=== PATIENT | male | born 1940 | race Caucasian/White ===

== ENCOUNTER 2017-01-25 08:44 | Observation (INO) | payer MEDICARE, BC ==
[~2017-01-25] VITALS: Ht 182.9 cm; Wt 72.8 kg
--- NOTE | ~2017-01-25 | HEMODYNAMI ---
PATIENT:JOHN CHAMBERS MEDICAL RECORD: [id number] : 42 [facility] [id number] ADMISSION DATE: 01/25/17 Generatedon:01/26/201712:36 Patient name: JOHN HCAMBERS Patient #: [id number] SSN: [id number] : 1940 Date of study: 01/26/2017 Page: Of Hemodynamic Procedure Report Patient Data Patient Demographics Procedure consent was obtained First Name: Gender: Male Last Name: REYES : 1940 [facility] Initial: KAREN Age: 76 year(s) Patient #: [id number] Race: SSN: [id number] Additional ID: [id number] Contact details Address: [address] [place] [address] [place] State: [place] City: [place] Zip code: [address] Admission Admission Data Admission Date: 01/25/2017 Admission Time: 10:54 Arrival Date: 01/25/2017 Arrival Time: 10:54 Admit Source: Other Insurance Payor: Medicare Room #: D.2123 Weight (lbs.): 160.94 Weight (kg.): 73 Lab Results Lab Result Date: 01/26/2017 Lab Result Time: 0:00 Biochemistry Name Units Result Min Max BUN mg/dl 17 --(---*)-- 7 18 Creatinine mg/dl 1 --(--*-)-- 0.6 1.3 CBC Name Units Result Min Max Hemoglobin g/dl 16.6 --(---*)-- 13.5 17.5 Procedure Procedure Types Cath Procedure Diagnostic Procedure LHC LHC w/Coronaries w/Grafts Miscellaneous Procedures Moderate Sedation up to 15 minutes Procedure Description Procedure Date Procedure Date: 01/26/2017 Procedure Start Time: 12:23 Procedure End Time: 12:35 Procedure Staff Name Function Petey Dunlap MD Performing Physician Larua Pyle RT Scrub Bart Espinoza RN Nurse Annabella Kai RT Monitor Indication Angina Procedure Data Cath Procedure Fluoroscopy Diagnostic fluoroscopy Total fluoroscopy Time: 2.2 time: 2.2 min min Diagnostic fluoroscopy Total fluoroscopy dose: 347 dose: 347 mGy mGy Contrast Material Contrast Material Type Amount (ml) Isovue 300 68 Entry Location Entry Primary Successful Side Size Upsize Upsize Entry Closure Succes sful Closure Location (Fr) 1 (Fr) 2 (Fr) Remarks Device Remarks Femoral Right 5 Fr Vascade artery Closure System Estimated blood loss: 10 ml Diagnostic catheters Device Type Used For End Catheter Placement Cordis 5Fr Pigtail Ventriculography Catheter (MP) Cordis 5Fr JL 4.0 Procedure Catheter (MP) Cordis 5Fr 3DRC Catheter Procedure (MP) Diagnostic Infinity 5Fr Procedure AR 2 MOD catheter Procedure Complications No complications Procedure Medications Medication Administration Route Dosage Oxygen NC 2 l/min Lidocaine 2% added to field 20 Heparin Flush Bag added to field 2 bags (1000units/500ml NS) 0.9% NaCl I.V. 100 ml/hr Versed I.V. 1 mg Fentanyl I.V. 50 mcg Versed I.V. 1 mg Fentanyl I.V. 50 mcg Hemodynamics Rest HGB: 16.6 (g/dl) Heart Rate: 81 (bpm) Snapshots Pre Cath Intra NCS Post Cath Vital Signs Time Heart Resp SPO2 NIBP (mmHg) Rhythm Pain Status Sedation Rate (ipm) (%) Level (bpm) 11:58:53 68 17 98 149/79(110) NSR 4 (11) , 10(A) Distressing 12:03:15 61 22 98 121/68(84) NSR 4 (11) , 10(A) Distressing 12:07:17 77 17 97 120/92(102) NSR 4 (11) , 10(A) Distressing 12:12:20 64 14 97 138/68(118) NSR 4 (11) , 10(A) Distressing 12:16:36 61 16 98 123/66(86) NSR 4 (11) , 10(A) Distressing 12:20:50 55 16 98 109/60(86) NSR 0 (11) , No 9(A) pain 12:24:56 66 16 98 115/67(89) NSR 0 (11) , No 9(A) pain 12:29:04 69 15 97 109/64(86) NSR 0 (11) , No 9(A) pain 12:33:06 73 17 97 117/76(87) NSR 0 (11) , No 10(A) pain Medications Time Medication Route Dose Verified Delivered Reason Notes Effe ctiveness by by 12:00:10 Oxygen NC 2 Petey Buffie used for l/min Germán Espinoza RN procedure 12:01:16 Lidocaine 2% added 20ml Petey Petey for local to vial Germán Dunlap MD anesthetic field 12:01:23 Heparin Flush added 2 Petey Petey used for Bag to bags Germán Dunlap MD procedure (1000units/500ml field NS) 12:01:31 0.9% NaCl I.V. 100 Peteyolivier Mcgeeie Per ml/hr Germán Espinoza RN physician 12:18:45 Versed I.V. 1 mg Petey Mcgeeie for Germán Espinoza RN sedation 12:18:51 Fentanyl I.V. 50 Petey Buffie for mcg Germán Espinoza RN sedation 12:24:10 Versed I.V. 1 mg Petey Mcgeeie for Germán Espinoza RN sedation 12:24:15 Fentanyl I.V. 50 Petey Mcgeeie for mcg Germán Espinoza RN sedation Procedure Log Time Note 11:30:38 Bart Espinoza RN sent for patient. Start room use. 11:34:38 Informed consent obtained and on chart 11:34:52 Admit Source: Other 11:34:57 Arrival Date: 01/25/2017 10:54:00 AM 11:35:06 Insurance Payor : Medicare 11:37:18 Lab Result : Hemoglobin 16.6 g/dl 11:37:18 Lab Result : BUN 17 mg/dl 11:37:18 Lab Result : Creatinine 1 mg/dl 11:37:47 Diagnostic Cath Status : Elective 11:39:21 Indication : Angina 11:39:44 Time tracking: Regular hours 11:39:48 Plan of Care:Hemodynamics will remain stable., Cardiac rhythm will remain stable., Comfort level will be maintained., Respiratory function will remain adequate., Patient/ family verbilizes understanding of procedure., Procedure tolerated without complication., Recovers from procedure without complications.. 11:57:45 Patient received from Med II to [facility] 2 Alert and oriented. Tansferred to table in Supine position. 11:57:46 Warm blankets applied, and chary hugger turned on for patient comfort. 11:57:47 Correct patient and procedure confirmed by team. 11:57:47 ECG and BP/O2 sat monitors applied to patient. 11:57:49 Vital chart was started 11:57:52 Baseline sample Acquired. 11:57:57 Rhythm: sinus rhythm 11:57:59 Full Disclosure recording started 11:58:05 H&P Date Dictated: 01/26/2017 New H&P dictated by physician.. 11:58:07 Pre-procedure instructions explained to patient. 11:58:07 Pre-op teaching completed and patient verbalized understanding. 11:58:08 Family in waiting room. 11:58:10 Patient NPO since Midnight. 11:58:14 Is the patient allergic to Iodine/contrast media? No. 11:58:15 Was the patient premedicated? No 11:58:16 Is patient on blood thinner?Yes 11:58:19 ACC The patient was administered the following blood thiners within the last 24 hours: ACCPlavix 11:58:21 Patient diabetic? No. 11:58:24 Previous problem with sedation/anesthesia? No ? 11:58:26 Snore? Yes 11:58:27 Sleep apnea? No 11:58:28 Deviated septum? No 11:58:29 Opens mouth fully? Yes 11:58:30 Sticks out tongue? Yes 11:58:32 Airway obstruction? No ? 11:58:34 Dentures? No ? 11:58:38 Pre procedure: right dorsailis pedis pulse 1+ Palpable, but thready & weak; easily obliterated 11:58:43 Patient pain scale 4/10 ?. 11:58:51 IV patent on arrival in left forearm with 0.9% NaCl at O. 11:58:54 Lab results completed and on chart. 11:58:57 Right groin area was prepped with chlora-prep and draped in sterile fashion 11:58:58 Alarms reviewed by R. N. 11:58:58 Sharps counted by scrub and verified by R.N. 11:59:07 Procedure type changed to Cath procedure, Diagnostic procedure, LHC, LHC w/Coronaries w/Grafts, Miscellaneous Procedures, Moderate Sedation up to 15 minutes 12:00:03 Physician paged 12:00:10 Oxygen 2 l/min NC was administered by Bart Espinoza RN; used for procedure; 12:00:31 Use device set Femoral Dx 12:00:49 Acist Syringe opened to sterile field. 12:00:51 Bag Decanter opened to sterile field. 12:00:51 Medline Cath Pack opened to sterile field. 12:00:53 Terumo 5Fr Brighton Sheath opened to sterile field. 12:00:54 St Mesfin 260cm J .035 wire opened to sterile field. 12:01:16 Lidocaine 2% 20ml vial added to field was administered by Petey Dunlap MD; for local anesthetic; 12:01:21 Acist Hand Control opened to sterile field. 12:01:23 Heparin Flush Bag (1000units/500ml NS) 2 bags added to field was administered by Petey Dunlap MD; used for procedure; 12:01:27 Acist Manifold opened to sterile field. 12:01:29 Diagnostic Infinity 5Fr Multipack catheter opened to sterile field. 12:01:31 0.9% NaCl 100 ml/hr I.V. was administered by Bart Espinoza RN; Per physician; 12:01:31 Tegaderm 4 x 4 opened to sterile field. 12:04:14 Patient Weight : 73 kg 12:09:40 Zero performed for pressure channel P1 12:10:07 Physician arrived 12:18:01 --------ALL STOP TIME OUT------ 12:18:05 Final Timeout: patient, procedure, and site verified with staff and physician. All members of the team are in agreement. 12:18:08 Right groin site verified by team. 12:18:11 Physical assessment completed. ASA score P 2 - A patient with mild systemic disease as per Petey Dunlap MD. 12:18:17 Sedation plan: IV Moderate Sedation Versed, Fentanyl 12:18:45 Versed 1 mg I.V. was administered by Bart Espinoza RN; for sedation; 12::51 Fentanyl 50 mcg I.V. was administered by Bart Espinoza RN; for sedation; 12:23:21 Procedure started. 12:23:30 Local anesthetic to right femoral artery with Lidocaine 2% by Petey Dunlap MD.INITIAL ACCESS ONLY 12:24:10 Versed 1 mg I.V. was administered by Buffie Espinoza RN; for sedation; 12:24:15 Fentanyl 50 mcg I.V. was administered by Bart Espinoza RN; for sedation; 12:24:16 A 5 Fr sheath was inserted into the Right Femoral artery 12:25:10 A Cordis 5Fr Pigtail Catheter (MP) was advanced over the wire and used for Ventriculography. 12:25:21 LV angiography performed. 12:25:34 EF : 35 % 12:25:36 Catheter removed. 12:26:02 A Cordis 5Fr JL 4.0 Catheter (MP) was advanced over the wire and used for Procedure. 12:27:09 LCA angiography performed. 12:27:11 Catheter removed. 12::23 A Cordis 5Fr 3DRC Catheter (MP) was advanced over the wire and used for Procedure. 12:27:39 DASILVA to LAD angiography performed. 12:28:14 RCA angiography performed. 12:28:30 DASILVA angiography performed. 12:30:10 Catheter removed. 12:30:42 A Diagnostic Infinity 5Fr AR 2 MOD catheter was advanced over the wire and used for Procedure. 12:31:09 SVG to OM angiography performed. 12:31:19 Catheter removed. 12:32:48 Vascade 5Fr Closure Device opened to sterile field. 12:33:03 Sheath removed intact; hemostasis achieved with Vascade Closure System to the Right Femoral artery. 12:33:06 Procedure ended.(Physican Out) 12:33:15 Fluoroscopy time 02.20 minutes. 12:33:21 Fluoroscopy dose: 347 mGy 12:33:21 Flurop Dose total: 347 12:33:40 Contrast amount:Isovue 300 68ml. 12:33:42 Sharps counted by scrub and verified by R.N. 12:33:46 Insertion/operative site no bleeding no hematoma. 12:33:48 Post Procedure Pulses reassessed and unchanged 12:33:53 Post-procedure physical assessment completed. ASA score P 2 - A patient with mild systemic disease as per Petey Dunlap MD. 12:33:58 Post procedure rhythm: unchanged. 12:34:01 Estimated blood loss: 10 ml 12:34:05 Post procedure instruction explained to patient.Patient verbalizes understanding. 12:34:19 Procedure and supply charges have been captured, reviewed, submitted and are correct. 12:35:00 Procedure Complication : No complications 12:35:03 Vital chart was stopped 12:35:04 See physician's report for complete and final results. 12:35:07 Report given to [facility]. 12:35:11 Patient transfered to [facility] with Bed. 12:35:28 Procedure ended. 12:35:28 Full Disclosure recording stopped 12:35:36 End room use (Document Last) Device Usage Item Name Manufacture Quantity Catalog Number Hospital Part Current Minima l Lot# / Charge Number Stock Stock Serial# Code Acist Acist 1 64808 [id number] 796636 236112 20 Syringe Medical Systems Inc Bag Microtek 1 2002S 112005 48810 790503 5 Decanter Medical Inc. Medline Cardinal 1 [id number] 413906 94626 002931 5 Cath Pack Health Terumo 5Fr Terumo 1 [id number] 825938 808033 293122 [address] Mesfin 1 189847 412549 321705 071650 30 260cm J .035 wire Acist Hand Acist 1 50488 144167 155635 127484 5 Control Medical Systems Inc Acist Acist 1 76295 680047 861219 631248 5 Manifold Medical Systems Inc Diagnostic Cardinal 1 [id number] 187987 14873 902122 30 Infinity Health 5Fr Multipack catheter Tegaderm 4 3M 1 1626W 715171 414682 288897 5 x 4 Cordis 5Fr Cardinal 1 [id number] 5 Pigtail Health Catheter (MP) Cordis 5Fr Cardinal 1 [id number] 5 JL 4.0 Health Catheter (MP) Cordis 5Fr Cardinal 1 795783 5 3DRC Health Catheter (MP) Diagnostic Cardinal 1 [id number] 818488 787360 012592 20 Infinity Health 5Fr AR 2 MOD catheter Vascade Cardiva 1 [id number] 001062 40472 484894 10 5Fr Medical, Closure Inc. Device Signature Audit [place] Stage Time Signature Unsigned Intra-Procedure 01/26/2017 Annabella Quinn 12:35:58 PM RT(R) Signatures Monitor : Annabella Quinn Signature : RT Date : Time : [facility] [address] [place] [address]
[~2017-01-25 08:44] MED LIST: ASPIRIN EC81 MG PO; PLAVIX75 MG PO; TOPROL XL50 MG PO; ZESTRIL10 MG PO; ZOCOR40 MG PO
[2017-01-25 09:16] LABS: BASOPHILS 0.3 % (0.0-2.0); EOSINOPHILS 2.5 % (0-7); HEMATOCRIT 46.7 % (42.0-54.0); HEMOGLOBIN 16.6 g/dL (13.5-17.5); IMMATURE GRANULOCYTES 0.2 % (0-5); LYMPHOCYTES 24.6 % (15-50); MCH 32.2 pg (26.0-34.0); MCHC 35.5 g/dL (31.0-37.0); MCV 90.7 fL (80.0-100.0); MEAN PLATELET VOLUME 9.7 fL (7.4-10.4); MONOCYTES 10.1 % (2-11); NEUTROPHILS 62.3 % (40-80); PLATELET COUNT 143 10x3/uL (130-400); RBC 5.15 10x6/uL (4.20-6.10); RDW 12.4 % (11.5-14.5); WBC 6.3 10x3/uL (4.8-10.8)
[2017-01-25 09:31] LABS: ALBUMIN 3.9 g/dL (3.4-5.0); ALKALINE PHOSPHATASE 71 U/L (46-116); ALT (SGPT) 23 U/L (10-68); BILIRUBIN - TOTAL 0.65 mg/dL (0.2-1.3); CALC OSMOLALITY 284 mosm/kg (275-300); CALCIUM 9.3 mg/dL (8.5-10.1); CARBON DIOXIDE 29.6 mmol/L (21.0-32.0); CHLORIDE - SERUM 107 mmol/L (98-107); GLUCOSE 94 mg/dL (74-106); POTASSIUM - SERUM 4.3 mmol/L (3.5-5.1); PROTEIN - SERUM 7.5 g/dL (6.4-8.2); SODIUM 142 mmol/L (136-145); UREA NITROGEN 17 mg/dL (7-18); eGFR NON AFRICAN AMERICAN 77 mL/min (90-120)
[2017-01-25 09:42] LABS: CHOL - HDL RATIO 2.9 ratio (2.3-4.9); CHOLESTEROL, TOTAL 147 mg/dL (0-200); CKMB 0.8 U/L (0.0-3.6); CREATINE KINASE 65 UL (21-232); HDL CHOLESTEROL 51 mg/dL (32-96); LDL CHOLESTEROL 60 mg/dL (0-100); LDL-HDL RATIO 1.2 ratio (1.5-3.5); TRIGLYCERIDE 180 mg/dL (30-200); TROPONIN-I < 0.017 ng/mL (0.000-0.060)
[2017-01-25 13:02] VITALS: BP 121/71; Ht 182.9 cm; Wt 72.8 kg
[2017-01-25 13:02] LABS: CKMB 0.8 U/L (0.0-3.6); CREATINE KINASE 57 UL (21-232); TROPONIN-I < 0.017 ng/mL (0.000-0.060)
--- NOTE | 2017-01-25 13:30 | NUR ---
PT IS ALERT. ASSESSMENT DONE PER FLOWSHEET. NO OTHER NEEDS AT THIS TIME. WILL CONTNUE TO MONITOR.
[2017-01-25 16:13] VITALS: BP 104/50
[2017-01-25 18:30] LABS: CKMB 0.7 U/L (0.0-3.6); CREATINE KINASE 52 UL (21-232); TROPONIN-I 0.017 ng/mL (0.000-0.060)
--- NOTE | 2017-01-25 20:15 | NUR ---
INITIAL ROUNDS COMPLETED AT 1910 HRS. PT DENIED ANY DISCOMFORT. ASSESSMENT COMPLETED AT 1999 HRS. SB PER CM HR 60. LUNGS CTA. IV TO R HAND SL. WILL CONTINUE TO MONITOR. SR UP X2,CALL LIGHT WITHIN GENESIS.
[2017-01-25 21:37] VITALS: BP 110/65
--- NOTE | 2017-01-26 00:29 | NUR ---
PT RESTING WITH EYES CLOSED. RESP EVEN AND REGULAR. SR UP X2, CALL LIGHT WITHIN REACH.
[2017-01-26 00:30] VITALS: BP 101/59
--- NOTE | 2017-01-26 04:22 | NUR ---
PT RESTING WITH EYES CLOSED. RESP EVEN AND REGULAR. SR UP X2,CALL LIGHT WITHIN REACH.
[2017-01-26 04:45] VITALS: BP 126/66
--- NOTE | 2017-01-26 06:40 | NUR ---
VSS THROUGHOUT NIGHT. SR/SB PER CM. PT DENIED ANY DISCOMFORT. NEEDS MET;WILL CONTINUE TO MONITOR.
--- NOTE | 2017-01-26 07:42 | NUR ---
ASSESSMENT COMPLETED.DENIES ANY NEEDS. TELEMERTY SHOWS SB 58. SL TO RIGHT HAND.UP AB FIORELLA. CALL LIGHT IN REACH WITH SR UP. WILL MONITOR
--- NOTE | 2017-01-26 07:52 | NUR ---
RESTING QUIETLY NAD NOTED
[2017-01-26 08:00] VITALS: BP 129/73
[2017-01-26 11:40] LABS: BASOPHILS 0.3 % (0.0-2.0); EOSINOPHILS 1.6 % (0-7); HEMATOCRIT 43.3 % (42.0-54.0); HEMOGLOBIN 15.4 g/dL (13.5-17.5); LYMPHOCYTES 23.6 % (15-50); MCH 31.8 pg (26.0-34.0); MCHC 35.6 g/dL (31.0-37.0); MCV 89.3 fL (80.0-100.0); MEAN PLATELET VOLUME 10.1 fL (7.4-10.4); MONOCYTES 7.2 % (2-11); NEUTROPHILS 67.3 % (40-80); PLATELET COUNT 132 10x3/uL (130-400); RBC 4.85 10x6/uL (4.20-6.10); RDW 12.4 % (11.5-14.5); WBC 6.2 10x3/uL (4.8-10.8)
[2017-01-26 11:50] LABS: CALC OSMOLALITY 276 mosm/kg (275-300); CALCIUM 8.8 mg/dL (8.5-10.1); CARBON DIOXIDE 27.3 mmol/L (21.0-32.0); CHLORIDE - SERUM 105 mmol/L (98-107); GLUCOSE 105 mg/dL (74-106); POTASSIUM - SERUM 4.1 mmol/L (3.5-5.1); SODIUM 138 mmol/L (136-145); UREA NITROGEN 16 mg/dL (7-18); eGFR NON AFRICAN AMERICAN 77 mL/min (90-120)
[2017-01-26 12:08] VITALS: BP 122/71
--- NOTE | 2017-01-26 12:48 | NUR ---
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 SEDATED BUT AWAKENS EASILY.V/ SIGNS STABLE PPP RIGHT GROIN SOFT WITH DRSG DRY AND INTACT. NO NEEDS VOICE. WILL MONITOR
[2017-01-26] MEDS ORDERED: ISOSORBIDE MONO30 M1 PO (14:44)
[2017-01-26 16:00] VITALS: BP 147/73
--- NOTE | 2017-02-03 14:37 | DS ---
PATIENT:JOHN BEEBE :42 MEDICAL RECORD: [id number] DISCHARGE SUMMARY ADMISSION DATE: 01/25/17 DISCHARGE DATE: 01/26/17 DISCHARGE DIAGNOSES: 1. Angina. 2. Coronary artery disease. 3. Hypertension. 4. Hyperlipidemia. 5. Status post coronary bypass graft surgery. HOSPITAL COURSE: Mr. Beebe presents with anginal symptomatology; however, cardiac catheterization revealed wide patency of all his previously placed grafts and his previous stent. He had no disease, in need of transcatheter revascularization and was discharged home with the addition of Imdur 30 mg b.i.d. to his medical regimen. He will follow up with [facility] in 1-2 months. TRANSINT:[id number] Voice Confirmation ID: [id number] DOCUMENT ID: [id number] BUBBA HAMM MD at 1437 CC: [id number] DICTATION DATE: 01/26/17 1244 FINAL TESTER: 01/27/17 0142 DIS IN 01/26/17 [id number] [place] [address]
--- NOTE | 2017-02-03 14:37 | OP ---
PATIENT NAME: JOHN CHAMBERS MEDICAL RECORD: [id number] :42 LOCATION:D.M2 D.2123 ADMISSION DATE:01/25/17 SURGEON: BUBBA HAMM MD DATE OF OPERATION: 01/26/2017 PROCEDURES: 1. Left heart catheterization. 2. Selective coronary angiography. 3. Left ventriculogram. 4. Vein graft angiography. 5. DASILVA angiography. INDICATION: Angina and coronary artery disease. PROCEDURE: After informed consent was obtained and after detailed explanation of risks, benefits as well as alternative therapies, the patient elected to proceed with angiogram and heart catheterization. The right femoral area was prepped and draped in normal sterile fashion. The right femoral artery was cannulated via modified Seldinger technique with placement of 6-Maori sheath. All catheters exchanged through this sheath. FINDINGS: Left ventriculogram was performed in standard 30-degree SUAREZ view, reveals preserved cardiac wall motion, ejection fraction 50%. SELECTIVE CORONARY ANGIOGRAPHY: 1. Left main is with no significant angiographic disease. 2. Left anterior descending has a subtotal occlusion in the mid vessel. 3. DASILVA to the LAD is widely patent. Distal LAD is widely patent. 4. Left circumflex has previously placed stent in the AV groove circumflex: This is widely patent. 5. Vein graft to the first and second obtuse marginal in a skipped fashion is widely patent. 6. Right coronary is small, nondominant. OVERALL IMPRESSION: Wide patency of all bypass grafts, wide patency of the previously placed stent. Chest pain is most likely noncardiac in etiology. TRANSINT:[id number] Voice Confirmation ID: [id number] DOCUMENT ID: [id number] BUBBA HAMM MD at 1437 CC: [id number] DICTATION DATE: 01/26/17 1237 OPERATIONAL ASSISTANT: 01/26/17 1555 DIS IN 01/26/17 [place] [address]
== END 2017-01-26 18:09 | disposition home or self-care (01) ==
LOC: D.ER 08:44 → D.M2 10:54 → OBSVTIME 01-26 10:50 → D.M2 01-26 18:09
PROVIDERS: Emergency Medicine; ADMIT Internal Medicine Interventional Cardiology
DX: R07.89 Other chest pain (principal); I25.119 Atherosclerotic heart disease of native coronary artery with unspecified angina pectoris; Z95.1 Presence of aortocoronary bypass graft; Z95.5 Presence of coronary angioplasty implant and graft; I10 Essential (primary) hypertension; E78.5 Hyperlipidemia, unspecified